=== PATIENT | male | born 1935 | race African-American/Black ===

== ENCOUNTER 2023-06-20 10:41 | Emergency (ER) | payer OTHER ==
[~2023-06-20] VITALS: Ht 182.9 cm; Wt 73.0 kg
[2023-06-20 10:47] VITALS: TEMP 98.4; O2SAT 98
[2023-06-20 11:47] LABS: BASOPHILS % 0.7 % (0.0-2.0); EOSINOPHILS % 3.4 % (0.0-5.0); HEMATOCRIT. 39.2 % (42.0-52.0); HEMOGLOBIN. 12.9 g/dL (14.0-18.0); LYMPHOCYTES % 18.9 % (20.0-50.0); MEAN CORPUSCULAR HEMOGLOBIN 28.1 pg (28.0-32.0); MEAN CORPUSCULAR VOLUME 85.1 fL (80.0-94.0); MONOCYTES % 8.9 % (2.0-8.0); NEUTROPHILS % 68.1 % (40.0-76.0); PLATELET 209 x1000/uL (130-400); RED CELL DISTRIBUTION WIDTH 15.9 % (11.6-14.6); WHITE BLOOD COUNT 5.3 x1000/uL (4.5-11.0)
[2023-06-20 12:43] LABS: CHLORIDE 110 mEq/L (98-107); INDEX HEMOLYSI 1 (1-3); INDEX ICTERIC 1 (1-4); INDEX LIPEMIC 1 (1-3); POTASSIUM 3.3 mEq/L (3.5-5.1); SODIUM 141 mEq/L (136-145)
[2023-06-20 12:52] LABS: ALANINE AMINOTRANSFERASE 22 IU/L (13-61); ALBUMIN 3.5 g/dL (3.4-5.0); ASPARTATE AMINOTRANSFERASE 24 IU/L (15-37); BILIRUBIN TOTAL 0.8 mg/dL (0.1-1.0); CALCIUM 8.7 mg/dL (8.5-10.1); CARBON DIOXIDE 25 mEq/L (21-32); CREATININE 0.9 mg/dL (0.6-1.3); GLUCOSE 91 mg/dL (70-105); NT PRO B-TYPE NATRIURETIC PEP 559 pg/mL (5-125); PROTEIN TOTAL 7.7 g/dL (6.0-8.3); TROPONIN I HIGH SENSITIVITY 21 ng/L (<78); UREA NITROGEN BLOOD 9 mg/dL (7-21)
[2023-06-20 15:40] VITALS: BP 164/64; PULSE 56; RESP 17
== END 2023-06-20 19:25 | disposition left against medical advice (07) ==
LOC: ER 10:41
DX: R55 Syncope and collapse (principal); R00.1 Bradycardia, unspecified; I10 Essential (primary) hypertension
CPT/HCPCS: 36415; 71045; 80053; 83880; 84484; 85025; 93005; 99285

== ENCOUNTER 2023-08-18 14:13 | Emergency (ER) | payer OTHER ==
[~2023-08-18] VITALS: Ht 188 cm; Wt 89.0 kg
[2023-08-18 14:43] VITALS: O2SAT 100
[2023-08-18] MEDS ORDERED: AMLODIPINE (14:43)
[2023-08-18] MEDS ORDERED: FELODIPINE (14:43)
[2023-08-18] MEDS ORDERED: HYDRALAZINE (14:43)
[2023-08-18] MEDS ORDERED: PAXIL (14:43)
[2023-08-18] MEDS ORDERED: LIPITOR (14:43)
[2023-08-18] MEDS ORDERED: TERAZOSIN (14:43)
[2023-08-18 15:10] LABS: BASOPHILS % 0.3 % (0.0-2.0); EOSINOPHILS % 0.4 % (0.0-5.0); HEMOGLOBIN. 12.7 g/dL (14.0-18.0); LYMPHOCYTES % 11.7 % (20.0-50.0); MEAN CORPUSCULAR HEMOGLOBIN 27.8 pg (28.0-32.0); MEAN CORPUSCULAR HGB CONC 31.9 g/dL (31.0-37.0); MEAN PLATELET VOLUME 7.5 fl (7.4-10.4); MONOCYTES % 5.8 % (2.0-8.0); NEUTROPHILS % 81.8 % (40.0-76.0); PLATELET 294 x1000/uL (130-400); RED BLOOD CELL COUNT 4.59 mill/uL (4.7-6.1); RED CELL DISTRIBUTION WIDTH 15.2 % (11.6-14.6); WHITE BLOOD COUNT 7.2 x1000/uL (4.5-11.0)
[2023-08-18 15:18] LABS: ALANINE AMINOTRANSFERASE 17 IU/L (10-49); ALBUMIN 4.1 g/dL (3.2-4.8); ASPARTATE AMINOTRANSFERASE 26 IU/L (<34); BILIRUBIN TOTAL 0.8 mg/dL (0.1-1.0); CALCIUM 9.3 mg/dL (8.7-10.4); CARBON DIOXIDE 21 mEq/L (21-32); CHLORIDE 105 mEq/L (98-107); CREATININE 1.4 mg/dL (0.6-1.3); GLUCOSE 148 mg/dL (70-105); POTASSIUM 4.1 mEq/L (3.5-5.1); PROTEIN TOTAL 7.7 g/dL (6.0-8.3); SODIUM 137 mEq/L (136-145); TROPONIN I HIGH SENSITIVITY 16 ng/L (3.0-53); UREA NITROGEN BLOOD 12 mg/dL (9-23)
[2023-08-18 16:00] VITALS: BP 127/58; PULSE 43; RESP 14; TEMP 96.3
[2023-08-18] MEDS ORDERED: LACTATED RINGERS 1,000 ML IV SCH (17:30)
[2023-08-18 17:54] LABS: LACTIC ACID 4.5 mmol/L (0.4-2.0)
[2023-08-18] MEDS ORDERED: MAGNESIUM 2 G PREMIX 50 ML IV ONE (19:15)
[2023-08-18] MEDS ORDERED: IPRATROPIUM/ALBUTEROL 0.5-3(2.5)MG/3ML NEB HHN PRN (19:45)
[2023-08-18] MEDS ORDERED: DOCUSATE SODIUM 100MG CAPSULE PO PRN (19:45)
[2023-08-18] MEDS ORDERED: ACETAMINOPHEN 325MG TABLET PO PRN ×2 (19:45)
[2023-08-18] MEDS ORDERED: ONDANSETRON HCL 4MG/2ML INJ IV PRN (19:45)
[2023-08-18] MEDS ORDERED: CLONIDINE 0.1MG TABLET PO PRN (19:45)
== END 2023-08-18 20:42 | disposition left against medical advice (07) ==
LOC: ER 14:13 → EDBEDREQTM 19:00 → EDBEDREQ 19:00 → EDBEDREQSVC 19:00 → ER 20:42
DX: R06.02 Shortness of breath (principal); M54.50 Low back pain, unspecified; R94.31 Abnormal electrocardiogram [ECG] [EKG]; E78.00 Pure hypercholesterolemia, unspecified; I10 Essential (primary) hypertension
CPT/HCPCS: 36415; 71045; 71275; 74174; 80053; 83605; 84484; 85025; 93005; 99285